=== PATIENT | male | born 1965 | race Caucasian/White ===

== ENCOUNTER → 2019-01-26 | Outpatient (CLI) | payer SELFPAY ==
[~2019-01-26] MED LIST: CATHETER FLUSH 10 ML SYR IV PRN; HOLD METFORMIN - RECEIVED CONTRAST 20 ML VIAL IV SCH; IOHEXOL 350 MG/ML 100 ML (OMNIPAQUE 350) VIAL IV ONE; NS 100 ML (IVPB) BAG IV ONE
[2019-01-26 12:05] LABS: BUN/CREATININE RATIO 11; CREATININE SERUM 0.84 MG/DL (0.60-1.30); GFR ESTIMATED > 60
--- NOTE | 2019-01-26 13:18 | Diagnostic Imaging Report ---
PROCEDURE: CT abdomen and pelvis with contrast. TECHNIQUE: Multiple contiguous axial images were obtained through the abdomen and pelvis after administration of intravenous contrast. Auto Exposure Controls were utilized during the CT exam to meet ALARA standards for radiation dose reduction. INDICATION: Lower abdominal pain for 2 years. Getting worse. COMPARISON: None. FINDINGS: The heart is unremarkable. The included lung bases are clear. Decreased attenuation is seen throughout the liver. No focal hepatic lesions. The portal vein is patent. The gallbladder is unremarkable. No intra or extrahepatic biliary dilation is seen. The spleen, pancreas, adrenal glands, and kidneys have a normal appearance. There is no pathologically enlarged mesenteric or retroperitoneal adenopathy. The bowel loops are nondilated. Diverticulosis of the colon is seen. A small amount of pericolonic inflammatory changes are seen along the proximal descending colon. Bilateral inguinal hernias are present with loops of small bowel contained within the right inguinal hernia. No evidence of associated obstruction or strangulation is seen. There is no free fluid or free air. The osseous structures are age-appropriate. There is calcified aortic and iliac atherosclerotic plaque without evidence of aneurysm. Ureters and bladder are grossly normal. There is no free air, loculated collection, or adenopathy in the pelvis. IMPRESSION: 1. Bilateral inguinal hernias, with the right inguinal hernia containing loops of small bowel. No evidence of associated obstruction or strangulation. Recommend correlation with physical exam. 2. Diverticulosis of the colon. Pericolonic inflammatory changes are seen along a small segment of the proximal descending colon which may represent acute uncomplicated diverticulitis. 3. Hepatic steatosis. No focal hepatic lesions. Report given to nurse (Torie) at 1:16 p.m. 01/26/2019/cb Dictated by: Dictated on workstation # [id number]
== END ==
LOC: RAD 11:30
PROVIDERS: ATTEND Nurse Practitioner Community Health
DX: K46.9 Unspecified abdominal hernia without obstruction or gangrene (principal); K57.30 Diverticulosis of large intestine without perforation or abscess without bleeding; K76.0 Fatty (change of) liver, not elsewhere classified
CPT/HCPCS: 36415; 74177; 82565; 84520